=== PATIENT | male | born 1935 | race Hispanic/Latino ===

== ENCOUNTER 2020-10-14 10:31 | Emergency (ER) | payer OTHER ==
[2020-10-14 11:44] LABS: Protime INR 1.83
[2020-10-14 11:45] LABS: Absolute Lymphocytes (CBC) 1.8 K/uL (0.7-4.9); Basophils % 0.4 % (0-1.3); Hematocrit 37.3 % (39.6-49.0); Lymphocytes % 24.2 % (15.3-44.8); MPV 8.7 fL (7.6-11.3); RBC Red Blood Cell Count 4.48 M/uL (4.33-5.43)
[2020-10-14 11:51] LABS: Potassium 4.4 mmol/L (3.5-5.1)
--- NOTE | 2020-10-14 11:59 | RAD REPORT ---
EXAM DESCRIPTION: CTFacial Bones W Con Mpr10/14/2020 11:30 am CLINICAL HISTORY: Right facial pain and swelling COMPARISON: None. TECHNIQUE: Computed axial tomography of the face obtained with coronal and sagittal reconstruction. 50 cc Isovue-[address] scans are performed using dose optimization technique as appropriate and may include automated exposure control or mA/KV adjustment according to patient size. FINDINGS: A defect is present within the subcutaneous tissues of the right cheek. Surrounding this i s 2.5 centimeter area of increased density. Within this is a far several very small fluid filled area s. This area does not extend into the underlying musculature. The parotid and submandibular glands appear unremarkable. The visualized airway is unremarkable Fluid within the sinuses is not noted. Dental caries is present. IMPRESSION: 2.5 centimeter inflammatory mass subcutaneous tissues right cheek. It contains several t iny low-density areas compatible with infection. However, a significant drainable abscess is not pres ent .
[2020-10-14] MEDS ORDERED: CLINDAMYCIN 900MG/D5W 900 MG/50 ML IVPB IV ONE (12:32)
--- NOTE | 2020-10-14 12:45 | ER ---
Nurse's Notes [facility] Name: Dmitriy Xiao Sr Age: 85 yrs Sex: Male : 1935 Arrival Date: 10/14/2020 Time: 10:39 Bed 7 Private MD: Diagnosis: Cellulitis of face-right cheek;Open wound of cheek and temporomandibular area-right Presentation: 10/14 10:45 Chief complaint: Patient's son or daughter states: PT. stays at [place] [id number] Home three hours away. Has had abscess on his right cheek for the past six weeks. He is being seen by Wound Care and has been treated with antibiotics. Denies fever, nausea, vomiting, and diarrhea. 10:45 Coronavirus screen: At this time, the client does not indicate any symptoms associated rb3 with coronavirus-19. Ebola Screen: Patient denies travel to an Ebola-affected area in the 21 days before illness onset. Initial Sepsis Screen: Does the patient meet any 2 criteria? No. Patient's initial sepsis screen is negative. Does the patient have a suspected source of infection? Yes: Skin breakdown/wound. Risk Assessment: Do you want to hurt yourself or someone else? Patient reports no desire to harm self or others. Onset of symptoms is unknown. 10:45 Method Of Arrival: Wheelchair rb3 10:45 Acuity: SOREN 3 rb3 Triage Assessment: 10:45 General: Appears in no apparent distress. comfortable, Behavior is calm, cooperative, rb3 Denies fever, feeling ill, chills. Pain: Denies pain. Neuro: Level of Consciousness is awake, alert, obeys commands, Oriented to person, place. Cardiovascular: Patient's skin is warm and dry. Respiratory: Airway is patent Respiratory effort is even, unlabored, Respiratory pattern is regular, symmetrical. GI: No signs and/or symptoms were reported involving the gastrointestinal system. : No signs and/or symptoms were reported regarding the genitourinary system. Derm: Skin open wound, surrounding tissue is swollen and red Skin is red, Wound noted right cheek Reports Is currently being treated by wound care at [facility]. Has been treated with antibiotics for the wound. Historical: - Allergies: 10:45 No Known Allergies; rb3 - Home Meds: 10:45 Gas Relief 80 80 mg oral chew daily [Active]; Lasix 20 mg Oral tab 1 tab once daily rb3 [Active]; Lipitor 10 mg Oral tab 1 tab once daily [Active]; Macrodantin 100 mg Oral cap 1 cap once daily [Active]; oxybutynin chloride 10 mg Oral tr24 1 tab once daily [Active]; Paxil 10 mg Oral tab 1 tab once daily [Active]; Coumadin 5 mg Oral tab 1 tab once daily [Active]; Exelon Patch daily [Active]; Flomax 0.4 mg Oral cp24 1 cap once daily [Active]; Proscar 5 mg Oral tab 1 tab once daily [Active]; Protonix 40 mg Oral TbEC 1 tab once daily [Active]; Toprol XL 25 mg Oral Tb24 0.5 tab once daily [Active]; Zyloprim 100 mg Oral tab 3 tabs once daily [Active]; enalapril maleate 5 mg Oral tab 1 tab 2 times per day [Active]; Namenda 10 mg oral tab 1 tab 2 times per day [Active]; potassium chloride 20 mEq Oral TbER 1 tab 2 times per day [Active]; artificial tears solution 1 drop every 6 hours [Active]; - PMHx: 10:45 Diabetes - NIDDM; Herpesviral vesicular Dermatitis; Anemia; Nutritional Anemia; rb3 Hyperlipidemia; hypokalemia; vascular dementia with behavioral disturbance; Major Depressive Disorder; Degenerative disease of nervous system; Chronic pain; Hypertension; chronic embolism and thrombosis; GERD; Gout; Muscle Atrophy; Acute kidney failure; benign prostatic hyperplasia without urinary symptoms; altered mental status; - PSHx: 10:45 Knee surgery; back; rb3 - Immunization history:: Adult Immunizations up to date. - Social history:: Smoking status: Patient/guardian denies using. Screenin:45 Abuse screen: Denies threats or abuse. Nutritional screening: No deficits noted. rb3 Tuberculosis screening: No symptoms or risk factors identified. Fall Risk No fall in past 12 months (0 pts). Secondary diagnosis (15 points) impaired mobility, No IV (0 pts). Ambulatory Aid- None/Bed Rest/Nurse Assist (0 pts). Gait- Impaired (20 pts.). Mental Status- Overestimates/Forgets Limitations (15 pts.). Total [place] Fall Scale indicates High Risk Score (45 or more points). Fall prevention measures have been instituted. Side Rails Up X 2 Placed Close to Nursing Station 1:1 Attendant Assigned Frequent Obs/Assessments Occuring As available patient and family educated on Fall Prevention Program and Strategies. Assessment: 10:45 General: See triage assessment. rb3 11:44 Reassessment: Patient appears in no apparent distress at this time. No changes from rb3 previously documented assessment. Dr. Arevalo is at the bedside. 12:20 Reassessment: Patient appears in no apparent distress at this time. Patient and/or rb3 family updated on plan of care and expected duration. Pain level reassessed. Patient is alert, oriented x 3, equal unlabored respirations, skin warm/dry/pink. 12:45 Reassessment: Discharge pending due to antibiotics infusing. rb3 12:57 Reassessment: Applied a non-adhesive gauze dressing with tape to the right cheek. No rb3 bleeding or drainage noted. Pt. tolerated well. 13:00 Reassessment: Patient appears in no apparent distress at this time. Patient and/or rb3 family updated on plan of care and expected duration. Pain level reassessed. Patient is alert, oriented x 3, equal unlabored respirations, skin warm/dry/pink. Patient denies pain at this time. Vital Signs: 10:45 BP 134 / 71; Pulse 73; Resp 19; Temp 97.1(TE); Pulse Ox 100% ; Weight 97.52 kg; Height rb3 5 ft. 11 in. (180.34 cm); Pain 0/10; 11:38 BP 141 / 45; Pulse 55; Resp 18; Pulse Ox 99% ; rb3 12:35 BP 108 / 58; Pulse 68; Resp 17; Pulse Ox 97% ; rb3 10:45 Body Mass Index 29.99 (97.52 kg, 180.34 cm) rb3 ED Course: 10:39 Patient arrived in ED. as 10:41 Natalia Duncan, MARCELO is Primary Nurse. rb3 10:41 Estuardo Villarreal PA is PHCP. cp 10:41 Noah Arevalo MD is Attending Physician. cp 10:45 Arm band placed on right wrist. rb3 10:45 Patient has correct armband on for positive identification. Bed in low position. Call rb3 light in reach. Side rails up X 1. Pulse ox on. NIBP on. Warm blanket given. 11:03 Triage completed. rb3 11:25 Procalcitonin Sent. mh5 11:26 PT-INR Sent. mh5 11:26 Wound Culture Sent. mh5 11: BMP Sent. mh5 11: CBC with Diff Sent. mh5 11:26 Initial lab(s) drawn, by me, sent to lab. Wound culture swab sent to lab. Inserted [facility] saline lock: 20 gauge in right forearm, using aseptic technique. Blood collected. 11:27 Adult w/ patient. mh5 11:30 CT Facial Bones W/ Con \T\ Mpr In Process Unspecified. EDMS 13:00 No provider procedures requiring assistance completed. rb3 13:00 IV discontinued, intact, bleeding controlled, No redness/swelling at site. Pressure rb3 dressing applied. Administered Medications: 12:19 Drug: Clindamycin 900 mg Route: IVPB; Infused Over: 30 mins; Site: right forearm; rb3 12:57 Follow up: Response: No adverse reaction; IV Status: Completed infusion rb3 Outcome: 12:45 Discharge ordered by MD. cp 13:00 Discharged to home via wheelchair, with family. rb3 13:00 Condition: stable 13:00 Discharge instructions given to patient, Instructed on discharge instructions, follow up and referral plans. medication usage, Demonstrated understanding of instructions, follow-up care, medications, Prescriptions given X 1. 13:00 Patient left the ED. rb3 Addendum: 10/17/2020 21:41 Addendum: Culture Results: Positive wound culture. left message for pt to call ED for b b further information pt to follow-up with PCP for possible IV antibiotics. 21:42 Addendum: Other pt's daughter returned phone call and was instructed on need for b b follow-up with PCP. 10/18/2020 09:37 Addendum: Other faxed culture report to [facility], spoke to Thania JESUS, will i w let me know if fax did not go through. Signatures: Dispatcher [employer] Camila Jarrell Brenda, RN RN Marsha Diaz RN RN iw Page, Corey, PA PA cp Martinez, Maria [facility] Natalia Duncan RN RN rb3 Corrections: (The following items were deleted from the chart) 04/03 13:15 13:15 Patient left the ED. rb3 rb3
--- NOTE | 2020-10-14 12:45 | EDPHYS ---
Physician Documentation [facility] Name: Dmitriy Xiao Sr Age: 85 yrs Sex: Male : 1935 Arrival Date: 10/14/2020 Time: 10:39 Bed 7 Private MD: ED Physician Noah Arevalo HPI: 10/14 11:00 This 85 yrs old Male presents to ER via Wheelchair with complaints of Abscess cp - cheek. 11:00 Description: open wound, swelling right facial cheek. Onset: The symptoms/episode cp began/occurred last year. Possible cause(s): caused by injury from hunting. Associated signs and symptoms: Pertinent positives: swelling, Pertinent negatives: fever. Historical: - Allergies: 10:45 No Known Allergies; rb3 - Home Meds: 10:45 Gas Relief 80 80 mg oral chew daily [Active]; Lasix 20 mg Oral tab 1 tab once daily rb3 [Active]; Lipitor 10 mg Oral tab 1 tab once daily [Active]; Macrodantin 100 mg Oral cap 1 cap once daily [Active]; oxybutynin chloride 10 mg Oral tr24 1 tab once daily [Active]; Paxil 10 mg Oral tab 1 tab once daily [Active]; Coumadin 5 mg Oral tab 1 tab once daily [Active]; Exelon Patch daily [Active]; Flomax 0.4 mg Oral cp24 1 cap once daily [Active]; Proscar 5 mg Oral tab 1 tab once daily [Active]; Protonix 40 mg Oral TbEC 1 tab once daily [Active]; Toprol XL 25 mg Oral Tb24 0.5 tab once daily [Active]; Zyloprim 100 mg Oral tab 3 tabs once daily [Active]; enalapril maleate 5 mg Oral tab 1 tab 2 times per day [Active]; Namenda 10 mg oral tab 1 tab 2 times per day [Active]; potassium chloride 20 mEq Oral TbER 1 tab 2 times per day [Active]; artificial tears solution 1 drop every 6 hours [Active]; - PMHx: 10:45 Diabetes - NIDDM; Herpesviral vesicular Dermatitis; Anemia; Nutritional Anemia; rb3 Hyperlipidemia; hypokalemia; vascular dementia with behavioral disturbance; Major Depressive Disorder; Degenerative disease of nervous system; Chronic pain; Hypertension; chronic embolism and thrombosis; GERD; Gout; Muscle Atrophy; Acute kidney failure; benign prostatic hyperplasia without urinary symptoms; altered mental status; - PSHx: 10:45 Knee surgery; back; rb3 - Immunization history:: Adult Immunizations up to date. - Social history:: Smoking status: Patient/guardian denies using. ROS: 11:05 Constitutional: Negative for body aches, chills, fever, poor PO intake. cp 11:05 Eyes: Negative for injury, pain, redness, and discharge. cp Exam: 11:10 Constitutional: The patient appears in no acute distress, alert, awake, non-toxic, well cp developed, well nourished. 11:10 Head/face: Noted is swelling, that is mild, of the right cheek. 11:10 Eyes: Periorbital structures: appear normal, Pupils: equal, round, and reactive to light and accomodation, Extraocular movements: intact throughout, Conjunctiva: normal, no exudate, no injection, Sclera: no appreciated abnormality, Lids and lashes: appear normal, bilaterally. 11:10 ENT: External ear(s): are unremarkable, Nose: is normal, Posterior pharynx: Airway: no evidence of obstruction, patent. 11:10 Neck: ROM/movement: is normal, is supple, without pain, no range of motions limitations. 11:10 Chest/axilla: Inspection: normal, abrasion, is not appreciated, deformity, is not appreciated. 11:10 Cardiovascular: Rate: normal, Rhythm: regular. 11:10 Respiratory: the patient does not display signs of respiratory distress, Respirations: normal, no use of accessory muscles, no retractions. 11:10 Skin: noted dime size open wound to right facial cheek with scant drainage noted, no erythema. Vital Signs: 10:45 BP 134 / 71; Pulse 73; Resp 19; Temp 97.1(TE); Pulse Ox 100% ; Weight 97.52 kg; Height rb3 5 ft. 11 in. (180.34 cm); Pain 0/10; 11:38 BP 141 / 45; Pulse 55; Resp 18; Pulse Ox 99% ; rb3 12:35 BP 108 / 58; Pulse 68; Resp 17; Pulse Ox 97% ; rb3 10:45 Body Mass Index 29.99 (97.52 kg, 180.34 cm) rb3 MDM: 10:54 Patient medically screened. cp 12:44 Data reviewed: vital signs, nurses notes, lab test result(s), radiologic studies, CT cp scan. 12:44 Counseling: I had a detailed discussion with the patient and/or guardian regarding: the cp historical points, exam findings, and any diagnostic results supporting the discharge/admit diagnosis, lab results, radiology results, the need for outpatient follow up, a veterinary attendant, an ENT specialist, to return to the emergency department if symptoms worsen or persist or if there are any questions or concerns that arise at home. Response to treatment: the patient's symptoms have markedly improved after treatment, and as a result, I will discharge patient. 10/14 10:56 Order name: CBC with Diff; Complete Time: 12:01 10/14 12:01 Interpretation: Normal except: HGB 11.8; HCT 37.3; MCH 26.3; MCHC 31.6; RDW 19.1. 10/14 10:56 Order name: BMP; Complete Time: 12:01 10/14 10:56 Order name: Wound Culture 10/14 10:56 Order name: PT-INR; Complete Time: 12:01 10/14 10:57 Order name: Procalcitonin; Complete Time: 12:28 10/14 12:28 Interpretation: Reviewed. 10/14 11:09 Order name: CT Facial Bones W/ Con \T\ Mpr; Complete Time: 12:01 10/14 10:56 Order name: IV; Complete Time: 11:26 cp Administered Medications: 12:19 Drug: Clindamycin 900 mg Route: IVPB; Infused Over: 30 mins; Site: right forearm; rb3 12:57 Follow up: Response: No adverse reaction; IV Status: Completed infusion rb3 Disposition: 13:00 Chart complete. Disposition: 10/14/20 12:45 Discharged to Home. Impression: Cellulitis of face - right cheek, Open wound of cheek and temporomandibular area - right. - Condition is Stable. - Discharge Instructions: Cellulitis, Adult. - Prescriptions for Clindamycin HCl 300 mg Oral Capsule - take 1 capsule by ORAL route every 6 hours for 10 days; 40 capsule. - Medication Reconciliation Form, Thank You Letter, Antibiotic Education, Prescription Opioid Use form. - Follow up: Private Physician; When: 2 - 3 days; Reason: Wound Recheck. - Problem is an ongoing problem. - Symptoms have improved. Addendum: 10/15/2020 18:41 Co-signature as Attending Physician, Noah Arevalo MD. m a2 Signatures: Dispatcher [employer] EDMS sEtuardo Villarreal PA PA cp Alzahri, Mohammad, MD MD ma2 Natalia Duncan RN RN rb3 Corrections: (The following items were deleted from the chart) 10/14 13:15 12:45 10/14/2020 12:45 Discharged to Home. Impression: Cellulitis of face - right rb3 cheek; Open wound of cheek and temporomandibular area - right. Condition is Stable. Forms are Medication Reconciliation Form, Thank You Letter, Antibiotic Education, Prescription Opioid Use. Follow up: Private Physician; When: 2 - 3 days; Reason: Wound Recheck. Problem is an ongoing problem. Symptoms have improved. cp
[2020-10-14 18:22] VITALS: TEMP 97.1
[2020-10-14 18:29] VITALS: BP 108/58; O2SAT 97
== END 2020-10-14 13:15 | disposition home or self-care (01) ==
LOC: ER 10:31
DX: L03.211 Cellulitis of face (principal); E11.9 Type 2 diabetes mellitus without complications; E78.5 Hyperlipidemia, unspecified; F01.51 Vascular dementia, unspecified severity, with behavioral disturbance; F32.9 Major depressive disorder, single episode, unspecified; I10 Essential (primary) hypertension; K21.9 Gastro-esophageal reflux disease without esophagitis; M10.9 Gout, unspecified; G31.9 Degenerative disease of nervous system, unspecified; G89.29 Other chronic pain; N40.0 Benign prostatic hyperplasia without lower urinary tract symptoms
CPT/HCPCS: 96365; 87070; 85025; 80048; 36415; 87205; 85610; 82565; 87077 ×2; 87186 ×2; 84145; 70487; 76377; 99284; Q9967